=== PATIENT | female | born 1965 | race Caucasian/White ===

== ENCOUNTER 2020-10-31 22:10 | Inpatient (IN) ==
[2020-10-31] MEDS ORDERED: methylPREDNISolone 125 MG/2 ML VIAL IV STA (22:22)
[2020-10-31] MEDS ORDERED: ALBUT/IPRATROP 3MG/0.5MG NEB 3 ML VIAL NEB ONE (22:22)
--- NOTE | 2020-10-31 22:22 | Emergency Department Note ---
History of Present Illness General Chief complaint: Shortness of Breath/Dyspnea Stated complaint: SOB Time Seen by Provider: 10/31/20 22:18 Source: patient and RN notes reviewed Mode of arrival: ambulatory Limitations: clinical acuity History of Present Illness This patient presents to the hospital in significant respiratory distress. She does wear home oxygen has a history of COPD she presented to triage with significant tachypnea and was not wearing oxygen. She was placed in room B1 they called and I saw her immediately. The patient does have audible wheezes. She tells me that she has been sick for 3 days she is had a little bit of a cough but no fever chills apparently she did have the Covid vaccine and Covid tested recently. No trauma or injury she does have an a port in her right chest for a history of poor IV access. Denies any allergies. Due to her significant respiratory distress is difficult to get a complete history Home Medications Medication Instructions Recorded Confirmed Type Medical Marijuana 1 dose PO DIRECTED 10/31/20 10/31/20 History albuterol sulfate 2.5 mg INHALATION Q4H PRN 10/31/20 10/31/20 History albuterol sulfate 90 mcg/actuation 2 puff INHALATION Q4H PRN 10/31/20 11/01/20 History aerosol inhaler ammonium lactate 12 % lotion 1 applic TOPICAL BID PRN 10/31/20 10/31/20 History atorvastatin 40 mg tablet (Lipitor) 40 mg PO BID 10/31/20 10/31/20 History budesonide 0.5 mg/2 mL suspension 0.5 mg INHALATION BID 10/31/20 10/31/20 History for nebulization (Pulmicort) clonazepam 2 mg tablet 2 mg PO BID PRN 10/31/20 10/31/20 History fluticasone propionate 50 1 spray INTRANASAL BID 10/31/20 10/31/20 History mcg/actuation nasal spray,suspension insulin aspart U-100 100 unit/mL 0 unit SUBCUT TIDM 10/31/20 10/31/20 History (3 mL) subcutaneous pen (Novolog Flexpen U-100 Insulin aspart) insulin glargine 100 unit/mL (3 30 unit SUBCUT BID 10/31/20 10/31/20 History mL) subcutaneous pen (Basaglar KwikPen U-100 Insulin) insulin lispro 100 unit/mL 90 unit SUBCUT DAILY 10/31/20 10/31/20 History subcutaneous pen ipratropium 0.5 mg-albuterol 3 mg 3 ml INHALATION Q4H PRN 10/31/20 11/01/20 History (2.5 mg base)/3 mL nebulization soln ipratropium 20 mcg-albuterol 100 1 puff INHALATION QID 10/31/20 10/31/20 History mcg/actuation mist for inhalation (Combivent Respimat) levalbuterol HCl 0.31 mg/3 mL 0.31 mg INHALATION DAILY PRN 10/31/20 10/31/20 History solution for nebulization levothyroxine 75 mcg tablet 150 mcg PO DAILY 10/31/20 10/31/20 History lisinopril 40 mg tablet 60 mg PO DAILY 10/31/20 10/31/20 History metformin 500 mg tablet,extended 1,000 mg PO BID 10/31/20 10/31/20 History release 24hr metoprolol succinate 25 mg 50 mg PO BID 10/31/20 10/31/20 History tablet,extended release 24 hr omeprazole 20 mg capsule,delayed 20 mg PO DAILY 10/31/20 10/31/20 History release ondansetron HCl 4 mg tablet 4 mg PO Q8H PRN 10/31/20 10/31/20 History (Zofran) oxycodone-acetaminophen 5 mg-325 2 tab PO Q6H PRN 10/31/20 10/31/20 History mg tablet prednisone 20 mg tablet 40 mg PO DAILY 10/31/20 10/31/20 History tiotropium 2.5 mcg-olodaterol 2.5 1 puff INHALATION DAILY 10/31/20 10/31/20 History mcg/actuation mist for inhalation (Stiolto Respimat) umeclidinium 62.5 mcg/actuation 1 inh INHALATION BID 10/31/20 10/31/20 History blister powder for inhalation (Incruse Ellipta) vortioxetine 5 mg tablet 5 mg PO DAILY 10/31/20 10/31/20 History (Trintellix) Allergies Allergy/AdvReac Type Severity Reaction Status Date / Time codeine Allergy Severe Anaphylaxis Verified 10/31/20 23:47 egg Allergy Severe RESP Verified 10/31/20 23:47 DISTRESS, HIVES ibuprofen Allergy Severe Anaphylaxis Verified 10/31/20 23:47 Influenza Virus Vaccines Allergy Severe ENDED UP Verified 10/31/20 23:47 ON VENTILATOR ketorolac [From Toradol] Allergy Severe Anaphylaxis Verified 10/31/20 23:47 lorazepam Allergy Severe FACE, Verified 10/31/20 23:47 LIPS, TONGUE EXTREME SWELLING naproxen Allergy Severe Anaphylaxis Verified 10/31/20 23:47 morphine Allergy Intermediate ITCHING Verified 10/31/20 23:47 ALL OVER Iodinated Contrast Media AdvReac Intermediate Vomiting Verified 10/31/20 23:47 Past Med/Surg History Social History Smoking Status: Current every day smoker Preferred Language: Spanish Feels Safe at Home: Yes Immunizations: Past medical historyCOPD Review of Systems A total of 10 systems reviewed and were otherwise negative Physical Exam Vital Signs Vital Signs - 24 hr 10/31/20 22:12 10/31/20 22:30 10/31/20 22:33 Temperature 37.2 C Temperature Source Temporal Artery Scan Pulse Rate 122 H 87 93 H Pulse Rate [Apical] Pulse Rate from SpO2 Sensor Respiratory Rate 36 H 29 H 34 H Respiratory Effort / Characteristics Labored Spontaneous Labored Retracting Short of Breath Respiratory Pattern Tachypnea Rapid/Shallow Tachypnea Blood Pressure 125/86 Blood Pressure Mean 99 Pulse Oximetry 92 98 99 Oxygen Delivery Method Room Air BiPAP Oxygen Flow Rate Fraction of Inspired Oxygen 40 40 Sepsis Recent Fever Within 48 Hours No Sepsis New/Unexplained Change in Mental Status N/A Sepsis Action Taken by Nursing Physician Notified 10/31/20 22:36 10/31/20 22:44 10/31/20 23:03 Temperature Temperature Source Pulse Rate 101 H Pulse Rate [Apical] 79 Pulse Rate from SpO2 Sensor 93 H Respiratory Rate 34 H 27 H Respiratory Effort / Characteristics Spontaneous Accessory Muscle Use Labored Retracting Short of Breath Respiratory Pattern Blood Pressure 130/96 Blood Pressure Mean 107 Pulse Oximetry 99 98 99 Oxygen Delivery Method BiPAP BiPAP BiPAP Oxygen Flow Rate Fraction of Inspired Oxygen 40 40 Sepsis Recent Fever Within 48 Hours Sepsis New/Unexplained Change in Mental Status Sepsis Action Taken by Nursing 10/31/20 23:31 11/01/20 00:02 11/01/20 00:30 Temperature Temperature Source Pulse Rate 82 83 72 Pulse Rate [Apical] Pulse Rate from SpO2 Sensor 83 79 72 Respiratory Rate 31 H 30 H 23 Respiratory Effort / Characteristics Respiratory Pattern Blood Pressure 126/84 135/45 L 113/67 Blood Pressure Mean 98 75 82 Pulse Oximetry 98 100 97 Oxygen Delivery Method BiPAP BiPAP BiPAP Oxygen Flow Rate Fraction of Inspired Oxygen Sepsis Recent Fever Within 48 Hours Sepsis New/Unexplained Change in Mental Status Sepsis Action Taken by Nursing 11/01/20 01:01 11/01/20 01:30 11/01/20 01:39 Temperature Temperature Source Pulse Rate 75 68 Pulse Rate [Apical] 77 Pulse Rate from SpO2 Sensor 60 67 Respiratory Rate 22 17 22 Respiratory Effort / Characteristics Non-Labored Spontaneous Respiratory Pattern Blood Pressure 127/81 104/67 Blood Pressure Mean 96 79 Pulse Oximetry 96 99 97 Oxygen Delivery Method Nasal Cannula Nasal Cannula Nasal Cannula Oxygen Flow Rate 3 3 3 Fraction of Inspired Oxygen Sepsis Recent Fever Within 48 Hours Sepsis New/Unexplained Change in Mental Status Sepsis Action Taken by Nursing General: Well developed well nourished delays female who presents in moderate to severe respiratory in distress, breathing comfortably on room air. He is able to answer questions but speaks only a few words due to respiratory distress. She has audible wheezes HEENT: Normal cephalic atraumatic. Pupils are equal round and reactive to light. Extraocular movements are intact. Oropharynx is pink with moist mucous membranes. No swelling of the mouth lips or tongue. Neck: Supple with a midline trachea. No meningeal signs or stiffness, no JVD or bruits. No Stridor. Chest: Wheezes to auscultation bilaterally with increased work of breathing. A port in right chest Heart: Regular rate and rhythm without murmurs or gallops. Abdomen: Soft nontender, nondistended without rebound guarding or rigidity. Extremities: No cyanosis clubbing or edema. No calf tenderness Spine/Back. Non tender to palpation. No CVA tenderness Skin: Good turgor without rashes. Neurologic exam: Cranial nerves two through 12 are intact. Motor and sensation are intact and symmetrical throughout. Course Administered Medications Discontinued Medications Albuterol (Albut/Ipratrop 3mg/0.5mg Neb 3 Ml Vial) 12 ml NEB ONE ONE Stop: 10/31/20 22:23 Last Admin: 10/31/20 22:37 Dose: 12 ml Documented by: [id number] Hydromorphone HCl (Hydromorphone Inj 1 Mg/Ml Syringe) 1 mg IV NOW STA Stop: 10/31/20 23:34 Last Admin: 10/31/20 23:40 Dose: 1 mg Documented by: [id number] Levalbuterol HCl (Levalbuterol Hcl 1.25 Mg/3 Ml Neb) 1.25 mg NEB NOW STA Stop: 11/01/20 01:32 Last Admin: 11/01/20 01:38 Dose: 1.25 mg Documented by: [id number] Methylprednisolone (Methylprednisolone 125 Mg/2 Ml Vial) 125 mg IV NOW STA Stop: 10/31/20 22:23 Last Admin: 10/31/20 22:36 Dose: 125 mg Documented by: [id number] Ondansetron HCl (Ondansetron Inj 2 Mg/Ml 2 Ml Vial) 4 mg IV NOW STA Stop: 10/31/20 23:34 Last Admin: 10/31/20 23:37 Dose: 4 mg Documented by: [id number] Critical Care Time Critical Care Time: Yes Total Critical Care Time: 40 Due to the patient's significant respiratory distress and need for multiple medications, frequent reassessment and evaluation, consultation and admission/observation, I have personally spent greater than 40 minutes of critical care time in the direct management of this patient. This includes bedside care, interpretation of diagnostic studies, and testing, discussion with consultants, patient, and family members, and other required patient management activities. This 40 minutes is in excess of all separately billable procedures. Medical Decision Making Differential Diagnosis COPD exacerbation, respiratory failure, CHF, pneumonia, sepsis, Covid, electrolyte or metabolic abnormality, PE, acute coronary syndrome, arrhythmia Medical Records Attestation: I reviewed the patient's medical records. Home Medications Current Medication List: was personally reviewed by me Laboratory Data Result diagrams: 10/31/20 22:27 10/31/20 22:27 Lab Results 10/31/20 10/31/20 10/31/20 Range/Units 22:27 22:27 22:27 WBC 8.88 (4.8-10.8) K/uL RBC 4.03 L (4.2-5.4) M/uL Hgb 12.3 (12.0-16.0) g/dL POC Hgb (12.0-16.0) g/dl Hct 36.8 L (37-47) % POC Hct (37-47) % MCV 91.3 (80-100) fL MCH 30.5 (25-34) pg MCHC 33.4 (32-36) g/dL RDW Std Deviation 51.2 H (36.4-46.3) fL RDW Coeff of Bryson 15.3 H (11.5-14.5) % Plt Count 291 (130-400) K/uL MPV 9.6 (7.4-10.4) fL Immature Gran % (Auto) 0.3 % Neut % (Auto) 77.7 % Lymph % (Auto) 17.5 % [place] % (Auto) 4.3 % Eos % (Auto) 0.0 % Baso % (Auto) 0.2 % Neut # (Auto) 6.90 H (1.4-6.5) K/uL Lymph # (Auto) 1.55 (1.2-3.4) K/uL [place] # (Auto) 0.38 (0.11-0.59) K/uL Eos # (Auto) 0.00 (0-0.5) K/uL Baso # (Auto) 0.02 (0-0.2) K/uL Immature Gran # (Auto) 0.03 H (0.00-0.02) K/uL PT 9.8 (9.0-12.0) Seconds INR 1.0 (0.9-1.1) APTT 24.2 (21.0-31.0) Seconds PTT Ratio 0.9 VBG pH VBG pCO2 VBG pO2 VBG HCO3 VBG O2 Saturation VBG Base Excess Barometric Pressure POC Sodium (135-144) mmol/L Sodium 142 (136-145) mmol/L POC Potassium (3.3-5.0) mmol/L Potassium 4.3 (3.5-5.1) mmol/L POC Chloride (101-112) mmol/L Chloride 111 H (98-107) mmol/L Carbon Dioxide 24 (21-32) mmol/L POC Total CO2 (24-31) mmol/L Anion Gap 7.0 (3-11) POC Anion Gap (16-25) mmol/L POC BUN (7-18) mg/dl BUN 17 (7-18) mg/dl Creatinine 0.80 (0.6-1.2) mg/dl POC Creatinine (0.6-1.3) mg/dl Est Cr Clr Drug Dosing Not Reportable Est GFR ( Amer) 95.5 ml/min Est GFR (Non-Af Amer) 82.4 ml/min BUN/Creatinine Ratio 20.8 H (10-20) Glucose 108 H (70-99) mg/dl POC Glucose (other) (70-99) mg/dl Calcium 8.7 (8.5-10.1) mg/dl POC Ioniz Calcium Idalmis (1.12-1.32) mmol/l Magnesium 2.2 (1.8-2.4) mg/dl Total Bilirubin 0.2 (0.2-1) mg/dl AST 23 (15-37) U/L ALT 26 (12-78) U/L Alkaline Phosphatase 84 (45-117) U/L Troponin I < 0.015 (0-0.045) ng/ml Total Protein 7.1 (6.4-8.2) gm/dl Albumin 3.9 (3.4-5.0) gm/dl Globulin 3.2 (2.5-4.0) gm/dl Albumin/Globulin Ratio 1.2 (0.9-2) Lipase 85 (73-393) U/L COVID-19 Eval Order SARS-CoV-2 (PCR) (Negative) 10/31/20 10/31/20 10/31/20 Range/Units 22:29 22:41 22:41 WBC (4.8-10.8) K/uL RBC (4.2-5.4) M/uL Hgb (12.0-16.0) g/dL POC Hgb 12.6 (12.0-16.0) g/dl Hct (37-47) % POC Hct 37 (37-47) % MCV (80-100) fL MCH (25-34) pg MCHC (32-36) g/dL RDW Std Deviation (36.4-46.3) fL RDW Coeff of Bryson (11.5-14.5) % Plt Count (130-400) K/uL MPV (7.4-10.4) fL Immature Gran % (Auto) % Neut % (Auto) % Lymph % (Auto) % [place] % (Auto) % Eos % (Auto) % Baso % (Auto) % Neut # (Auto) (1.4-6.5) K/uL Lymph # (Auto) (1.2-3.4) K/uL [place] # (Auto) (0.11-0.59) K/uL Eos # (Auto) (0-0.5) K/uL Baso # (Auto) (0-0.2) K/uL Immature Gran # (Auto) (0.00-0.02) K/uL PT (9.0-12.0) Seconds INR (0.9-1.1) APTT (21.0-31.0) Seconds PTT Ratio VBG pH VBG pCO2 VBG pO2 VBG HCO3 VBG O2 Saturation VBG Base Excess Barometric Pressure POC Sodium 142 (135-144) mmol/L Sodium (136-145) mmol/L POC Potassium 4.4 (3.3-5.0) mmol/L Potassium (3.5-5.1) mmol/L POC Chloride 106 (101-112) mmol/L Chloride (98-107) mmol/L Carbon Dioxide (21-32) mmol/L POC Total CO2 23 L (24-31) mmol/L Anion Gap (3-11) POC Anion Gap 18.0 (16-25) mmol/L POC BUN 19 H (7-18) mg/dl BUN (7-18) mg/dl Creatinine (0.6-1.2) mg/dl POC Creatinine 0.6 (0.6-1.3) mg/dl Est Cr Clr Drug Dosing Est GFR ( Amer) ml/min Est GFR (Non-Af Amer) ml/min BUN/Creatinine Ratio (10-20) Glucose (70-99) mg/dl POC Glucose (other) 106 H (70-99) mg/dl Calcium (8.5-10.1) mg/dl POC Ioniz Calcium Idalmis 1.17 (1.12-1.32) mmol/l Magnesium (1.8-2.4) mg/dl Total Bilirubin (0.2-1) mg/dl AST (15-37) U/L ALT (12-78) U/L Alkaline Phosphatase (45-117) U/L Troponin I (0-0.045) ng/ml Total Protein (6.4-8.2) gm/dl Albumin (3.4-5.0) gm/dl Globulin (2.5-4.0) gm/dl Albumin/Globulin Ratio (0.9-2) Lipase (73-393) U/L COVID-19 Eval Order Covid19 at [facility] SARS-CoV-2 (PCR) NEGATIVE (Negative) 10/31/20 10/31/20 Range/Units 23:02 23:31 WBC (4.8-10.8) K/uL RBC (4.2-5.4) M/uL Hgb (12.0-16.0) g/dL POC Hgb (12.0-16.0) g/dl Hct (37-47) % POC Hct (37-47) % MCV (80-100) fL MCH (25-34) pg MCHC (32-36) g/dL RDW Std Deviation (36.4-46.3) fL RDW Coeff of Bryson (11.5-14.5) % Plt Count (130-400) K/uL MPV (7.4-10.4) fL Immature Gran % (Auto) % Neut % (Auto) % Lymph % (Auto) % [place] % (Auto) % Eos % (Auto) % Baso % (Auto) % Neut # (Auto) (1.4-6.5) K/uL Lymph # (Auto) (1.2-3.4) K/uL [place] # (Auto) (0.11-0.59) K/uL Eos # (Auto) (0-0.5) K/uL Baso # (Auto) (0-0.2) K/uL Immature Gran # (Auto) (0.00-0.02) K/uL PT (9.0-12.0) Seconds INR (0.9-1.1) APTT (21.0-31.0) Seconds PTT Ratio VBG pH Cancelled 7.40 VBG pCO2 Cancelled 41 VBG pO2 Cancelled 43 VBG HCO3 Cancelled 25 VBG O2 Saturation Cancelled 77.0 VBG Base Excess Cancelled 0.4 Barometric Pressure Cancelled POC Sodium (135-144) mmol/L Sodium (136-145) mmol/L POC Potassium (3.3-5.0) mmol/L Potassium (3.5-5.1) mmol/L POC Chloride (101-112) mmol/L Chloride (98-107) mmol/L Carbon Dioxide (21-32) mmol/L POC Total CO2 (24-31) mmol/L Anion Gap (3-11) POC Anion Gap (16-25) mmol/L POC BUN (7-18) mg/dl BUN (7-18) mg/dl Creatinine (0.6-1.2) mg/dl POC Creatinine (0.6-1.3) mg/dl Est Cr Clr Drug Dosing Est GFR ( Amer) ml/min Est GFR (Non-Af Amer) ml/min BUN/Creatinine Ratio (10-20) Glucose (70-99) mg/dl POC Glucose (other) (70-99) mg/dl Calcium (8.5-10.1) mg/dl POC Ioniz Calcium Idalmis (1.12-1.32) mmol/l Magnesium (1.8-2.4) mg/dl Total Bilirubin (0.2-1) mg/dl AST (15-37) U/L ALT (12-78) U/L Alkaline Phosphatase (45-117) U/L Troponin I (0-0.045) ng/ml Total Protein (6.4-8.2) gm/dl Albumin (3.4-5.0) gm/dl Globulin (2.5-4.0) gm/dl Albumin/Globulin Ratio (0.9-2) Lipase (73-393) U/L COVID-19 Eval Order SARS-CoV-2 (PCR) (Negative) Imaging Data Attestation: I personally reviewed and interpreted this imaging study as follows: My Impression: Chest x-rayno acute infiltrate, failure, pneumothorax seen. ECG Data Attestation: I personally reviewed and interpreted this ECG as follows: Indication: + SOB/dyspnea Rate (beats per minute): 91 Rhythm: + normal sinus ECG Intervals/blocks: + Normal QRS, + Short MI and + Normal QT ECG Epps: + Normal ECG ST segments: + Normal ST segments ECG Findings: no PACs or no PVCs Comparison ECG Date: no prior available MDM Narrative This patient comes in as described above. She presents with moderate to severe respiratory distress. She is placed in room B1. I saw her immediately. We did access her a port I ordered Solu-Medrol 125 mg IV as well as continuous albuterol and Atrovent nebs over 1 hour. Respiratory was at the bedside we also ordered BiPAP. She was reassessed frequently. With the hour-long neb and the BiPAP she slowly got better. I did also get some old records on her. She was just in [place] and was discharged on the after she signed out AMA. Her EKG does not suggest acute coronary syndrome or arrhythmia. Her troponin was negative. She apparently does have a history of A. fib but is not in A. fib here. She has no acute electrolyte or metabolic abnormalities. She was able to be weaned off of the BiPAP and onto oxygen. I also gave her some Xopenex. She was having some pain and was given Dilaudid 1 mg IV and Zofran 4 mg IV which typically helps her. She is doing much better. I do think she needs to be admitted/observed. I have consulted Dr. Pruitt to see her for these measures. Her VBG was obtained and shows pH of 7.4 and normal CO2 without retention. Continuous cardiac monitoring: An order was placed in EMR for continuous cardiac exercise physiologist. Upon my interpretation she was noted to be in normal sinus rhythm with a rate of 90 Impression & Plan Acute exacerbation of chronic obstructive pulmonary disease, Shortness of breath, Lab test negative for COVID-19 virus, Wheezing Discharge Plan Visit Data Chief Complaint: Shortness of Breath/Dyspnea Stated Complaint: SOB ED Provider: Samuel Schultz Discharge Problem: Acute exacerbation of chronic obstructive pulmonary disease, Shortness of breath, Lab test negative for COVID-19 virus, Wheezing Forms Stand Alone Forms: [facility] Prescriptions Prescriptions: No Action atorvastatin [Lipitor] 40 mg Tablet 40 mg PO BID RF: 0 ipratropium-albuterol [DuoNeb] 0.5 mg-3 mg(2.5 mg base)/3 mL Solution For Nebulization 3 ml INHALATION Q4H PRN (Reason: Shortness Of Breath) RF: 0 albuterol sulfate [Proventil] 2.5 mg /3 mL (0.083 %) Solution For Nebulization 2.5 mg INHALATION Q4H PRN (Reason: Shortness Of Breath) RF: 0 ammonium lactate [Lac-Hydrin] 12 % Lotion 1 applic TOPICAL BID PRN (Reason: LEFT HAND IRRITATION) RF: 0 ondansetron HCl [Zofran] 4 mg Tablet 4 mg PO Q8H PRN (Reason: Nausea) RF: 0 prednisone 20 mg Tablet 40 mg PO DAILY RF: 0 levothyroxine 75 mcg Tablet 150 mcg PO DAILY RF: 0 oxycodone-acetaminophen 5-325 mg Tablet 2 tab PO Q6H PRN (Reason: Pain, Severe) RF: 0 clonazepam 2 mg Tablet 2 mg PO BID PRN (Reason: Anxiety) RF: 0 omeprazole 20 mg Capsule,Delayed Release(Dr/Ec) 20 mg PO DAILY RF: 0 budesonide [Pulmicort] 0.5 mg/2 mL Suspension For Nebulization 0.5 mg INHALATION BID RF: 0 metoprolol succinate 25 mg Tablet Extended Release 24 Hr 50 mg PO BID RF: 0 albuterol sulfate 90 mcg/actuation Hfa Aerosol Inhaler 2 puff INHALATION Q4H PRN (Reason: Shortness Of Breath) RF: 0 lisinopril 40 mg Tablet 60 mg PO DAILY RF: 0 fluticasone propionate [Flonase] 50 mcg/actuation Glide,Suspension 1 spray INTRANASAL BID RF: 0 levalbuterol HCl 0.31 mg/3 mL Solution For Nebulization 0.31 mg INHALATION DAILY PRN (Reason: Wheezing) RF: 0 insulin lispro 100 unit/mL Insulin Pen 90 unit SUBCUT DAILY RF: 0 insulin aspart U-100 [Novolog Flexpen U-100 Insulin] 100 unit/mL (3 mL) Insulin Pen 0 unit SUBCUT TIDM RF: 0 metformin 500 mg Tablet Extended Release 24hr 1,000 mg PO BID RF: 0 Basaglar KwikPen U-100 Insulin 100 unit/mL (3 mL) Insulin Pen 30 unit SUBCUT BID RF: 0 Trintellix 5 mg Tablet 5 mg PO DAILY RF: 0 Incruse Ellipta 62.5 mcg/actuation Blister With Device 1 inh INHALATION BID RF: 0 Combivent Respimat 20-100 mcg/actuation Mist 1 puff INHALATION QID RF: 0 Stiolto Respimat 2.5-2.5 mcg/actuation Mist 1 puff INHALATION DAILY RF: 0 Medical Marijuana 1 dose PO DIRECTED RF: 0 Referrals Referrals: PCP,NO [Physician] -
[2020-10-31 22:38] LABS: Basophils # (auto) 0.02 K/uL (0-0.2); Basophils % (auto) 0.2 %; Hematocrit (blood only) 36.8 % (37-47); Hemoglobin 12.3 g/dL (12.0-16.0); Immature Granulocytes # (auto) 0.03 K/uL (0.00-0.02); Immature Granulocytes % (auto) 0.3 %; Lymphocytes # (auto) 1.55 K/uL (1.2-3.4); Lymphocytes % (auto) 17.5 %; Mean Corpuscular Hemoglobin 30.5 pg (25-34); Mean Corpuscular Hgb Conc 33.4 g/dL (32-36); Mean Corpuscular Volume 91.3 fL (80-100); Mean Platelet Volume 9.6 fL (7.4-10.4); Monocytes # (auto) 0.38 K/uL (0.11-0.59); Monocytes % (auto) 4.3 %; Neutrophils % (auto) 77.7 %; Platelet Count 291 K/uL (130-400); RDW Coefficient of Variation 15.3 % (11.5-14.5); RDW Standard Deviation 51.2 fL (36.4-46.3); Red Blood Count 4.03 M/uL (4.2-5.4); White Blood Count 8.88 K/uL (4.8-10.8)
[2020-10-31 22:41] LABS: iSTAT Creatinine 0.6 mg/dl (0.6-1.3); iSTAT Hemoglobin 12.6 g/dl (12.0-16.0); iSTAT Ionized Calcium 1.17 mmol/l (1.12-1.32); iSTAT Potassium 4.4 mmol/L (3.3-5.0)
[2020-10-31 22:56] LABS: Partial Thromboplastin Ratio 0.9; Partial Thromboplastin Time 24.2 Seconds (21.0-31.0); Prothrombin Time 9.8 Seconds (9.0-12.0)
[2020-10-31 22:59] LABS: Alanine Aminotransferase 26 U/L (12-78); Albumin Level 3.9 gm/dl (3.4-5.0); Aspartate Aminotransferase 23 U/L (15-37); BUN Creatinine Ratio 20.8 (10-20); Blood Urea Nitrogen 17 mg/dl (7-18); Calcium 8.7 mg/dl (8.5-10.1); Carbon Dioxide 24 mmol/L (21-32); Chloride 111 mmol/L (98-107); Est GFR (African American) 95.5 ml/min; Est GFR (Non-African American) 82.4 ml/min; Glucose 108 mg/dl (70-99); Lipase 85 U/L (73-393); Magnesium 2.2 mg/dl (1.8-2.4); Potassium 4.3 mmol/L (3.5-5.1); Sodium 142 mmol/L (136-145)
[2020-10-31 23:04] LABS: Albumin Globulin Ratio 1.2 (0.9-2); Alkaline Phosphatase 84 U/L (45-117); Bilirubin,Total 0.2 mg/dl (0.2-1); Globulin 3.2 gm/dl (2.5-4.0); Total Protein 7.1 gm/dl (6.4-8.2); Troponin I < 0.015 ng/ml (0-0.045)
[2020-10-31] MEDS ORDERED: ONDANSETRON INJ 2 MG/ML 2 ML VIAL IV STA (23:33)
[2020-10-31] MEDS ORDERED: HYDROmorphone INJ 1 MG/ML SYRINGE IV STA (23:33)
[2020-10-31 23:44] LABS: Base Excess VBG 0.4 mEq/L; HCO3 VBG 25 mmol/L; PCO2 VBG 41 mmHg (38-50); PO2 VBG 43 mmHg
[2020-11-01] MEDS ORDERED: LEVALBUTEROL HCL 1.25 MG/3 ML NEB NEB STA ×2 (01:31→08:51)
[2020-11-01] MEDS ORDERED: ONDANSETRON INJ 2 MG/ML 2 ML VIAL IV STA (03:21)
[2020-11-01] MEDS: HYDROmorphone INJ 0.5 MG/0.5 ML SYR IV PRN ×2 (03:38→16:01)
--- NOTE | 2020-11-01 05:04 | History and Physical Report ---
DATE OF ADMISSION: 11/01/2020. CHIEF COMPLAINT: Shortness of breath. HISTORY OF PRESENT ILLNESS: This is a 55-year-old female with past medical history significant for COPD, on home oxygen; history of acute respiratory failure with hypoxia and hypercapnia; type 2 diabetes; history of laryngeal and vocal cord edema; pharyngoesophageal dysphagia; PTSD, who presents with shortness of breath. The patient states since last Wednesday she is having a lot of shortness of breath, progressively getting worse and also coughing greenish yellow phlegm. Denies any fever. Complains of also chest pain, moderate in severity. Also having headache, some neck pain, some abdominal discomfort. Requesting for pain medications. The patient says she had COVID vaccine and also waiting for booster shot. In the ER, when she came in, she was tachypneic, and after hour long neb treatments and BiPAP, she has slowly gotten better. Currently, she is saturating okay on nasal cannula. Her ABGs were okay. Seems she recently was in the [facility] and signed out AMA on 10/30/2020. She says she has a history of AFib in the past and has ablation, but we do not have any records of that. Denies any blurred visions. No runny nose, no sore throat, no dysphagia, no poor appetite. Currently, no nausea, no diarrhea or constipation. Denies any blood in the stools, no hematuria, no rash. ALLERGIES: CODEINE,EGG, IBUPROFEN, INFLUENZA VIRUS VACCINE, KETOROLAC, LORAZEPAM, NAPROXEN, MORPHINE, IODINATED CONTRAST MEDIA. PAST MEDICAL HISTORY: As mentioned above. PAST SURGICAL HISTORY: No past surgical history on file. MEDICATIONS: Currently the patient is on albuterol 2 puffs inhalation q. 4 hours p.r.n., albuterol nebulization q. 4 hours p.r.n., atorvastatin 40 mg p.o. b.i.d., budesonide 0.5 mg inhalation b.i.d., Klonopin 2 mg p.o. b.i.d. p.r.n., Flonase 1 spray intranasal b.i.d., NovoLog FlexPen sliding scale insulin glargine 30 units b.i.d., Combivent Respimat 1 puff inhalation q.i.d., DuoNebs p.r.n., levothyroxine 150 mcg p.o. daily, lisinopril 60 mg p.o. daily, medical marijuana as directed, metformin 1000 mg p.o. b.i.d., metoprolol succinate 50 mg p.o. b.i.d., omeprazole 20 mg p.o. daily, Zofran 4 mg p.o. q. 8 hours p.r.n., oxycodone and acetaminophen 2 tablets p.o. q. 6 hours p.r.n., prednisone as directed, Stiolto Respimat 1 puff daily, Incruse 1 inhalation b.i.d., Trintellix 5 mg p.o. daily. FAMILY HISTORY: Significant for no family history on file. SOCIAL HISTORY: Former smoker, quit in 2011. No alcohol use. Medical marijuana use. REVIEW OF SYSTEMS: As per HPI. Rest of review of systems is negative. PHYSICAL EXAMINATION: GENERAL: The patient is of moderate build, not in acute distress. VITAL SIGNS: Temperature 37.2, pulse 77, respiratory rate 22, blood pressure 104/67, oxygen 97% on 3 liters. HEENT: Pupils equal, round and reactive to light. Oral mucosa moist. NECK: No JVD, no neck masses. CARDIOVASCULAR: S1 and S2 heard. Regular rate and rhythm. No murmur, no gallop. RESPIRATORY SYSTEM: Normal AP diameter. No accessory muscle use. Bilateral mild wheezing and rhonchi heard. ABDOMEN: Soft, bowel sounds present, nontender, no distention. CENTRAL NERVOUS SYSTEM: Cranial nerves II-XII grossly intact, nonfocal. EXTREMITIES: No edema, no erythema. LABORATORY DATA: WBC 8.8, hemoglobin 12.3, hematocrit 36.8, platelets 291. PT 9.8, INR 1, APTT 24.2. Venous pH 7.4, pCO2 of 41, pO2 of 43, bicarbonate 25. Sodium 142, potassium 4.3, chloride 111, bicarbonate 24, BUN 17, creatinine 0.8, serum glucose 108, calcium 8.7, magnesium 2.2, total bilirubin 0.2, AST 23, ALT 26, alkaline phosphatase 84. Troponin I less than 0.015. Lipase 85. SARS-CoV-2 PCR negative. IMAGING DATA: Chest x-ray, no acute findings. EKG: Sinus rhythm with short [place] at a rate of 91. No previous ECGs available. ASSESSMENT AND PLAN: This is a 55-year-old female who presents with chronic obstructive pulmonary disease exacerbation. 1. Pjzji-as-gtdvgjg respiratory failure: Chronic obstructive pulmonary disease exacerbation. Initially, was tachypneic, After hour long nebs and BiPAP, she is feeling better. Currently back on her home 3 liters oxygen. Has bilateral wheezing and rhonchi. Chest x-ray clear, no obvious infection. Empirically started on IV Solu-Medrol 40 mg t.i.d., nebs around the clock, and p.r.n. home inhalers and also p.o. doxycycline. The patient seems to be on a lot of respiratory medications. Will consult pulmonary to optimize her medications . 2. History of chest pain: Complains of chest pain. The patient says she has a history of atrial fibrillation, but we do not have any records. She does not remember being on any Coumadin or any blood thinners. She says she has history of ablation. Currently, EKG and troponins are unremarkable. Follow serial enzymes, echo, and consult cardiology in the a.m. for further recommendations. 3. History of hypertension: Continue her lisinopril, metoprolol succinate. Will monitor her blood pressure. 4. History of diabetes: Continue home long-acting insulin and placed on insulin sliding scale. Hold metformin. Will monitor blood sugars closely as the patient is getting IV steroids. 5. Hyperlipidemia: Continue statin. 6. Anxiety: Continue Klonopin p.r.n. 7. Gastroesophageal reflux disease: On omeprazole. 8. Hypothyroidism: On Synthroid. 9. Deep venous thrombosis prophylaxis: Lovenox. DISPOSITION: Closely monitor in the med tele. PT/OT prior to discharge. Social service to help with discharge planning. Job ID: [id number] [facility]
[2020-11-01] MEDS ORDERED: LEVOTHYROXINE SODIUM 150 MCG TABLET PO SCH (06:30)
--- NOTE | 2020-11-01 07:34 | XRay Report ---
XR chest 1V portable HISTORY: 55 years-old Female Chest Pain acute atypical chest pain COMPARISON: None TECHNIQUE: Portable AP view of the chest FINDINGS: Cardiac silhouette is mildly enlarged. Right IJ Lasiil-o-Ebvp catheter distal tip overlies the right atrium. No pneumothorax, or pleural effusion. Mild interstitial coarsening may be on a chronic basis. Subcentimeter nodular right perihilar opacity suggestive of a probable pulmonary vessel or less like ly pulmonary nodule. Mild ill-defined opacities of the lateral left lung base. Degenerative changes o f the shoulders and spine. IMPRESSION: Mild ill-defined opacities of the lateral left lung base favor atelectasis. Pneumonitis c onsidered less likely. ACT 112: Negative or not required by law. The above report was generated using voice recognition software. It may contain grammatical, syntax o r spelling errors. Electronically signed by: Zain Cortes M.D. 11/01/2020 7:33 AM
[2020-11-01] MEDS ORDERED: XOPENEX/ATROVENT 1.25mg/0.5MG NEB COMBO NEB SCH (07:39)
[2020-11-01] MEDS ORDERED: ACETAMINOPHEN 325 MG TAB PO PRN (07:39)
[2020-11-01] MEDS ORDERED: oxyCODONE/ACETAMINOPHEN 5mg/325mg TAB PO PRN (07:39)
[2020-11-01] MEDS ORDERED: NITROGLYCERIN SL 0.4 MG/TAB TAB SL PRN (07:39)
[2020-11-01] MEDS ORDERED: ALBUTEROL HFA 8 GM INHALER INH PRN (07:39)
[2020-11-01] MEDS ORDERED: clonazePAM 1 MG TAB PO PRN (07:39)
[2020-11-01] MEDS ORDERED: ONDANSETRON INJ 2 MG/ML 2 ML VIAL IV PRN (07:39)
[2020-11-01] MEDS ORDERED: IPRATROPIUM BROMIDE NEB SOLN 0.02% 2.5 ML VIAL INH SCH (07:39)
[2020-11-01] MEDS ORDERED: LEVALBUTEROL 1.25MG/0.5ML NEB INH SCH (07:39)
[2020-11-01] MEDS ORDERED: POLYETHYLENE (MIRALAX) 17 GM PACK PO PRN (07:39)
[2020-11-01] MEDS ORDERED: LEVALBUTEROL 1.25MG/0.5ML NEB ONE ×3 (07:48→08:57)
[2020-11-01] MEDS ORDERED: IPRATROPIUM BROMIDE NEB SOLN 0.02% 2.5 ML VIAL ONE ×2 (07:48→08:56)
[2020-11-01 08:12] VITALS: TEMP 98.4
[2020-11-01] MEDS ORDERED: AMMONIUM LACTATE 12% LOTION 225 GM BTL EXT PRN (08:30)
[2020-11-01] MEDS ORDERED: GLUCAGON FOR INJ 1 MG VIAL IM PRN (08:45)
[2020-11-01] MEDS ORDERED: DEXTROSE 50% 50 ML SYRINGE IV PRN (08:45)
[2020-11-01] MEDS ORDERED: GLUCOSE 40% GEL 15 GM TUBE PO PRN (08:45)
[2020-11-01] MEDS ORDERED: CARBOHYDRATES FOR HYPOGLYCEMIA PO PRN (08:45)
[2020-11-01] MEDS ORDERED: GLUCOSE 10 TABS/TUBE PO PRN (08:45)
[2020-11-01 08:49] LABS: Hematocrit (blood only) 35.8 % (37-47); Hemoglobin 11.7 g/dL (12.0-16.0); Immature Granulocytes # (auto) 0.03 K/uL (0.00-0.02); Immature Granulocytes % (auto) 0.4 %; Lymphocytes # (auto) 0.67 K/uL (1.2-3.4); Lymphocytes % (auto) 8.6 %; Mean Corpuscular Hemoglobin 29.4 pg (25-34); Mean Corpuscular Hgb Conc 32.7 g/dL (32-36); Mean Corpuscular Volume 89.9 fL (80-100); Mean Platelet Volume 10.1 fL (7.4-10.4); Monocytes # (auto) 0.06 K/uL (0.11-0.59); Monocytes % (auto) 0.8 %; Neutrophils # (auto) 7.02 K/uL (1.4-6.5); Neutrophils % (auto) 90.2 %; Platelet Count 278 K/uL (130-400); RDW Coefficient of Variation 15.1 % (11.5-14.5); RDW Standard Deviation 49.7 fL (36.4-46.3); Red Blood Count 3.98 M/uL (4.2-5.4); White Blood Count 7.78 K/uL (4.8-10.8)
[2020-11-01] MEDS ORDERED: IPRATROPIUM BROMIDE NEB SOLN 0.02% 2.5 ML VIAL NEB STA (08:50)
[2020-11-01] MEDS ORDERED: FLUTICASONE PROPIONATE NA SPR 16 GM BTL SCH (09:00)
[2020-11-01] MEDS ORDERED: DOXYCYCLINE HYCLATE 100 MG CAP PO SCH (09:00)
[2020-11-01] MEDS ORDERED: METOPROLOL SUCC 50MG EXT REL TAB PO SCH (09:00)
[2020-11-01] MEDS ORDERED: BUDESONIDE 0.5 MG/2 ML VIAL (PULMICORT) INH SCH ×2 (09:00→19:00)
[2020-11-01] MEDS ORDERED: NON-FORMULARY MEDICATION (Tiotropium-Olodaterol [Stiolto Respimat] 2.5-2.5 mcg/actuation M INH SCH (09:00)
[2020-11-01] MEDS ORDERED: ENOXAPARIN INJ 40 MG/0.4 ML SYR SQ SCH (09:00)
[2020-11-01] MEDS ORDERED: lisinopril 20 MG TAB PO SCH (09:00)
[2020-11-01] MEDS ORDERED: UMECLIDINIUM BROMIDE 62.5MCG/BLISTER 7 PUFFS/INHALER INH SCH (09:00)
[2020-11-01] MEDS ORDERED: PANTOprazole 40 MG TAB PO SCH (09:00)
[2020-11-01] MEDS ORDERED: ATORVASTATIN 40 MG TAB PO SCH (09:00)
[2020-11-01] MEDS ORDERED: INSULIN GLARGINE SOLOSTAR 100 UNITS/ML 3 ML PEN SQ SCH ×2 (09:00→21:00)
[2020-11-01 09:07] LABS: Estimated Average Glucose 123 mg/dl; Hemoglobin A1C 5.9 % (4.5-5.6)
[2020-11-01 09:21] LABS: BUN Creatinine Ratio 21.2 (10-20); Blood Urea Nitrogen 14 mg/dl (7-18); Calcium 8.8 mg/dl (8.5-10.1); Carbon Dioxide 25 mmol/L (21-32); Chloride 109 mmol/L (98-107); Est GFR (African American) 115.6 ml/min; Est GFR (Non-African American) 99.8 ml/min; Glucose 132 mg/dl (70-99); Magnesium 2.5 mg/dl (1.8-2.4); Potassium 4.1 mmol/L (3.5-5.1); Sodium 140 mmol/L (136-145)
[2020-11-01 09:25] LABS: Troponin I < 0.015 ng/ml (0-0.045)
[2020-11-01] MEDS: TRINTELLIX~ORDER AWAITING ACTION SCH ×2 (09:41→15:13)
[2020-11-01] MEDS ORDERED: PHARMACY GLYCEMIC MGMT CONSULT PRN (09:47)
--- NOTE | 2020-11-01 10:01 | Electrocardiogram Report ---
Test Reason : Blood Pressure : / mmHG Vent. Rate : 091 BPM Atrial Rate : 091 BPM P-R Int : 110 ms QRS Dur : 080 ms QT Int : 374 ms P-R-T Axes : 059 074 063 degrees QTc Int : 460 ms Poor data quality, interpretation may be adversely affected Sinus rhythm with short [place] Otherwise normal ECG No previous ECGs available Confirmed by Jhon Bell ([id number]) on 11/01/2020 10:01:29 AM Referred By: REFERRED SELF Confirmed By:Jhon Bell
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
[2020-11-01] MEDS: INSULIN ASPART 100 UNITS/ML 3 ML PEN SC SCH ×3 (11:51→17:00)
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
[2020-11-01] MEDS: IPRATROPIUM BROMIDE NEB SOLN 0.02% 2.5 ML VIAL INH SCH ×2 (12:08→19:49)
[2020-11-01] MEDS: LEVALBUTEROL 1.25MG/0.5ML NEB INH SCH ×2 (12:08→19:49)
--- NOTE | 2020-11-01 12:27 | Pharmacy Report ---
Pharmacy Glycemic Short Note 2 - Date of Service November 01, 2020 - Glycemic Short BSG Results (Last 24 hours): 10/31/20 10/31/20 11/01/20 22:27 22:29 07:57 Glucose 108 H 132 H POC Glucose POC Glucose (other) 106 H 11/01/20 07:59 Glucose POC Glucose 130 H POC Glucose (other) OUTPATIENT ANTIDIABETIC REGIMEN: * Basaglar 30 units BID * Novolog 6-12 units w/ snacks at 0900, 1200, and 2100 ( 6 units if BSG > 200, 12 units if BSG > 250) * Metformin 1g PO BID * A1c = 5.9% 11/01/20 ASSESSMENT: * Type 2 diabetic admitted for COPD exacerbation * A1c reflects good control however patient tells her BSGs are always running high (> 200) * Thus far BSGs have been in low 100s (even after receiving high dose Solu- medrol in ED last evening AND missing her HS dose of Lantus last night) * Solu-medrol 40mg IV TID has been ordered. Patient reports h/o steroid induced hyperglycemia, and relays episode of severe hyperglycemia attributed to steroid therapy leading to ICU admission. * Given current BSGs I am hesitant to stress out-pt insulin regimen too greatly. I feel it is best to look at out-pt regimen in terms of total daily dose (~80 units/day) and use this as a starting point - shifting more units toward prandial needs and less toward basal needs due to steroid provision. PLAN FOR INPATIENT GLYCEMIC CONTROL: * Hold outpatient oral diabetes medications * Basal insulin * Lantus SQ BID per scale: * 0 units if BSG less than 110 * 15 units if BSG 110-140 * 20 units if BSG 141-200 * 25 units if greater than 200 * Bolus insulin * NovoLog per scale ACHS or Q6hrs while NPO * Goal Range: Low 110 mg/dL - High 140 mg/dL * Correction Factor: 20 mg/dL/unit * Nutritional / Prandial insulin per carb ratio of 1 unit per 6 grams CHO consumed PLAN FOR DISCHARGE: * to be determined
[2020-11-01] MEDS ORDERED: methylPREDNISolone 40 MG in SYRINGE 0 ML IV SCH (14:00)
[2020-11-01 15:26] LABS: NT Pro B Type Natriuretic Pept 713 pg/ml (0-900); Troponin I < 0.015 ng/ml (0-0.045)
--- NOTE | 2020-11-01 15:41 | CT Scan Report ---
CT OF THE CHEST WITHOUT IV CONTRAST CLINICAL HISTORY: concern for ILD COMPARISON STUDY: Chest radiograph October 31, 2020. CT DOSE: 324.48 mGy.cm TECHNIQUE: Axial images of the chest were obtained without IV contrast. Images were reviewed in the axial, sagittal, and coronal planes. IV contrast was not administered for this examination. Automat ed exposure control was utilized for the study. A dose lowering technique was utilized adhering to t he principles of ALARA. FINDINGS: Right internal jugular [id number] is in place. No enlarged axillary, mediastinal or hil ar lymph nodes are present. The size of the heart is normal. There is no pericardial effusion. No con solidation is identified. Lungs are suboptimally assessed due to respiratory motion. There is a calci fied granuloma within the right middle lobe. Note is made of moderate upper lobe predominant parasept al emphysema. There is biapical scarring, greater on the right. No bronchiectasis is present. No jah ycombing is noted. Central airways are patent. There is no pneumothorax or pleural effusion. Incident al note is made of old right-sided rib fractures. Visualized portions of the upper abdomen are unrema rkable. IMPRESSION: 1. Moderate upper lobe predominant paraseptal emphysema. 2. No CT evidence for interstitial lung disease. 3. No consolidation to suggest pneumonia. ACT 112: Negative or not required by law. Electronically signed by: Evan Morin M.D. 11/01/2020 3:40 PM
[2020-11-01 16:09] VITALS: BP 106/65
[2020-11-01 19:53] VITALS: PULSE 86; O2SAT 99
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
[2020-11-01] MEDS ORDERED: guaiFENesin 600 MG TABCR PO SCH (21:00)
--- NOTE | 2020-11-01 22:51 | Billing Data ---
Date of Service November 01, 2020 Coding Level of Care Code 06219 Inpt Consult Level 4
[2020-11-02] MEDS ORDERED: SODIUM CHLOR 7% 4 ML NEB NEB SCH (07:00)
[2020-11-02] MEDS ORDERED: predniSONE 20 MG TAB PO SCH (09:00)
[2020-11-02] MEDS ORDERED: INSULIN GLARGINE SOLOSTAR 100 UNITS/ML 3 ML PEN SQ SCH (09:00)
[2020-11-02] MEDS ORDERED: lisinopril 40 MG TAB PO SCH (09:00)
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
== END 2020-11-01 21:40 | disposition left against medical advice (07) | DRG 190 ==
LOC: ED 22:10 → EDINP 11-01 03:03 → 2W 11-01 14:12
DX: I10 Essential (primary) hypertension; R07.89 Other chest pain; Z91.041 Radiographic dye allergy status; Z79.4 Long term (current) use of insulin; Z88.8 Allergy status to other drugs, medicaments and biological substances; Z79.899 Other long term (current) drug therapy; Z98.890 Other specified postprocedural states; J96.20 Acute and chronic respiratory failure, unspecified whether with hypoxia or hypercapnia; J44.0 Chronic obstructive pulmonary disease with (acute) lower respiratory infection; E11.9 Type 2 diabetes mellitus without complications; E78.5 Hyperlipidemia, unspecified; Z91.012 Allergy to eggs; E03.9 Hypothyroidism, unspecified; Z88.7 Allergy status to serum and vaccine; R33.9 Retention of urine, unspecified; Z88.5 Allergy status to narcotic agent; Z87.891 Personal history of nicotine dependence; K21.9 Gastro-esophageal reflux disease without esophagitis; J20.9 Acute bronchitis, unspecified; Z79.890 Hormone replacement therapy; Z88.6 Allergy status to analgesic agent; Z99.2 Dependence on renal dialysis; J44.1 Chronic obstructive pulmonary disease with (acute) exacerbation